=== PATIENT | female | born 1980 | race Caucasian/White ===

== ENCOUNTER 2018-02-17 01:10 | Emergency (ER) | payer OTHER, MEDICAID, SELFPAY ==
[2018-02-17 01:20] VITALS: BP 128/94; PULSE 105; RESP 20; TEMP 36.8; O2SAT 100; BMI 21.7
--- NOTE | 2018-02-17 01:33 | ED.DENTAL ---
HPI - Dental/Oral General Chief complaint: Dental/Oral Stated complaint: SWELLING, PAIN, VOMITING/TOOTH PULLED Time Seen by Provider: 02/17/18 01:13 Source: patient and family Mode of arrival: ambulatory Limitations: no limitations History of Present Illness HPI Narrative: 37-year-old, nonsmoker presents with mother and a chief complaint of multiple symptoms since having a tooth pulled few days ago. She had a tooth pulled on her right upper side after it been causing her trouble for a few days. She had been doing well until she developed increasing pain and some swelling and follow up with her dentist yesterday who removed the bone graft and placed her on amoxicillin. Over the course of the day she had increasing swelling as well as multiple episodes of nausea and vomiting followed by headache. She admittedly has had very little to eat or drink for the past few days and has now taken significant amounts of antibiotics on an essentially empty stomach. She denies fever or chills. She has had no bleeding or foul tasting drainage. MD Complaint: tooth pain 1. Onset (ago): day(s) Duration: constant Severity: moderate Exacerbating factors: chewing, cold, heat and drinking fluids Context: history of dental caries Treatment prior to arrival: oral analgesic Related Data Home Medications Medication Instructions Recorded Confirmed ALBUTEROL (PROVENTIL INHALER) #0 08/04/11 nitrofurantoin monohyd/m-cryst 100 mg PO BID #0 04/09/16 [Macrobid] Previous Rx's Medication Instructions Recorded ketorolac 10 mg PO Q6HP PRN #15 tab 04/09/16 metoclopramide HCl [Reglan] 10 mg PO TID PRN #10 tab 02/17/18 Allergies Allergy/AdvReac Type Severity Reaction Status Date / Time codeine Allergy Mild HIVES AND Unverified 08/20/17 12:10 VOMITING Review of Systems Review of Systems All systems reviewed & are unremarkable except as noted in HPI and below Constitutional Denies chills, Denies fever(s), Denies lethargy and Denies weakness Eyes Denies change in vision, Denies eye discharge, Denies irritation and Denies loss of vision ENT Ears, Nose, Mouth, and Throat: Denies change in voice, Reports mouth pain, Denies neck pain and Denies sore throat Cardiovascular Denies chest pain, Denies irregular heart rhythm, Denies lightheadedness, Denies palpitations, Denies dyspnea, Denies dyspnea on exertion and Denies orthopnea Respiratory Denies cough, Denies dyspnea, Denies dyspnea on exertion and Denies wheezing Gastrointestinal Gastrointestinal: Denies abdominal pain, Denies change in bowel habits, Denies diarrhea, Denies nausea and Denies vomiting Genitourinary Denies hematuria, Denies flank pain, Denies urinary incontinence and Denies urinary urgency Musculoskeletal Denies neck pain Integumentary/Breasts Denies pruritus, Denies erythema, Denies rash and Denies wounds Neurologic Denies confusion, Denies loss of vision and Denies weakness Psychiatric Denies anxiety, Denies confusion, Denies depression, Denies homicidal ideation and Denies suicidal ideation Endocrine Denies palpitations Hematologic/Lymphatic Denies easy bruising Allergic/Immunologic Denies wheezing [facility] Social History Smoking Status: Never smoker Exam Narrative Exam Narrative: GENERAL: This is a well-nourished, well-developed patient, in mild distress. Obviously not feeling well, clutching her right face HEAD: Atraumatic. Mild R face swelling, no redness. EYES: Pupils equal round and reactive. Extraocular motions intact. No scleral icterus. No injection or drainage. ENT: Tooth #3 absent, no abscess, bleeding, or drainage. Nose without bleeding, purulent drainage or septal hematoma. Throat without erythema, tonsillar hypertrophy or exudate. Uvula midline. Airway patent. NECK: Trachea midline. No JVD or lymphadenopathy. Supple, nontender, no meningeal signs. CARDIOVASCULAR: Regular rate and rhythm without murmurs, gallops, or rubs. RESPIRATORY: Clear to auscultation. Breath sounds equal bilaterally. No wheezes, rales, or rhonchi. GASTROINTESTINAL: Abdomen soft, non-tender, nondistended. No hepato-splenomegaly, or palpable masses. No guarding. EXTREMITIES: No clubbing, cyanosis, or edema. No joint tenderness, effusion, or edema noted. BACK: Nontender without deformity or crepitance. No flank tenderness. NEURO: AOx3. SKIN: No rash or erythema. Initial Vital Signs Initial Vital Signs: Vital Signs Temperature 98.2 F 02/17/18 01:20 Pulse Rate 105 H 02/17/18 01:20 Respiratory Rate 20 02/17/18 01:20 Blood Pressure 128/94 H 02/17/18 01:20 Pulse Oximetry 100 02/17/18 01:20 Course Orders Ordered: ED Orders 02/17/18 01:35 Basic Metabolic Panel Stat Complete Blood Count AUTO DIFF Stat Discontinued Medications Sodium Chloride (Normal Saline 0.9%) 1,000 mls @ 1,000 mls/hr IV BOLUS ONE Stop: 02/17/18 02:25 Last Infusion: 02/17/18 02:35 Dose: 0 mls/hr Admin: 02/17/18 01:42 Dose: 1,000 mls/hr Sodium Chloride (Normal Saline 0.9%) 1,000 mls @ 1,000 mls/hr IV BOLUS ONE Stop: 02/17/18 03:34 Last Infusion: 02/17/18 03:37 Dose: 0 mls/hr Admin: 02/17/18 02:38 Dose: 1,000 mls/hr Ketorolac Tromethamine (Toradol) 15 mg IV NOW ONE Stop: 02/17/18 01:27 Last Admin: 02/17/18 01:41 Dose: 15 mg Metoclopramide HCl (Reglan) 10 mg IV NOW ONE Stop: 02/17/18 01:27 Last Admin: 02/17/18 01:42 Dose: 10 mg Pantoprazole Sodium (Protonix) 40 mg IV NOW ONE Stop: 02/17/18 01:27 Last Admin: 02/17/18 01:42 Dose: 40 mg Reevaluation(s) Reevaluation #1: The patient reports a near complete resolution of symptoms and is requesting discharge after 2 bags of fluid Vital Signs - 8 hr 02/17/18 01:20 02/17/18 03:42 Temperature 98.2 F 98.3 F Pulse Rate 105 H 92 H Respiratory Rate 20 14 Blood Pressure 128/94 H 107/64 Pulse Oximetry 100 98 MDM - Dental/Oral Lab Data Result diagrams: 02/17/18 01:35 02/17/18 01:35 Lab Results 02/17/18 02/17/18 Range/Units 01:35 01:35 WBC 6.3 (4.5-11.0) X10^3/uL RBC 4.57 (4.0-5.2) X10^6/uL Hgb 10.5 L (12.0-16.0) g/dL Hct 32.7 L (36-46) % MCV 71.5 L (80-100) fL MCH 23.0 L (26-34) PG MCHC 32.1 (30-36) % RDW 16.2 H (11.6-14.8) % Plt Count 208 (150-400) X10^3/uL Neut % (Auto) 76.1 H (50-75) % Lymph % (Auto) 15.5 L (25-40) % [place] % (Auto) 5.7 (3-14) % Eos % (Auto) 2.5 (2-4) % Baso % (Auto) 0.2 (0-2) % Neut # (Auto) 4800 (0877-4418) /uL Sodium 140 (137-145) mmol/L Potassium 3.9 (3.4-5.1) mmol/L Chloride 103 (98-107) mmol/L Carbon Dioxide 29 (22-32) mmol/L BUN 8 (7-17) mg/dL Creatinine 0.60 (0.52-1.04) mg/dL Estimated GFR > 60.0 (>60) mL/min BUN/Creatinine Ratio 13.3 (6-22) Glucose 94 (70-100) mg/dL Calcium 9.0 (8.4-10.2) mg/dL Discharge Plan Departure Patient Disposition: Home Clinical Impression: Pain, dental, Abscess, dental Discharge Date/Time: 02/17/18 03:43 Interventions: ED Discharge Assessment Last Done: 02/17/18 03:42 Instructions: Tooth Abscess, DI for Dental Pain Activity Restrictions/Additional Instructions: 1. Drink plenty of fluids with frequent small sips. 2. For the next 24 hours a clear liquid diet is advised. After that please employ a brat diet which would include bananas, rice, apples, toast. 3. Please take medications as directed. 4. Please follow-up with your doctor in the next 1-2 days. Call the office for an appointment. 5. Please return to the emergency Department for any worsening or persistent symptoms, such as increasing pain or fever. Prescriptions: New metoclopramide HCl [Reglan] 10 mg tablet 10 mg PO TID PRN (Reason: nausea and vomiting) Qty: 10 RF: 0 No Action ALBUTEROL (PROVENTIL INHALER) Qty: 0 RF: 0 nitrofurantoin monohyd/m-cryst [Macrobid] 100 MG capsule 100 mg PO BID Qty: 0 RF: 0 ketorolac 10 MG tablet 10 mg PO Q6HP PRNQty: 15 RF: 0
[2018-02-17] MEDS: KETOROLAC 60 MG/2 ML VIAL 15 MG IV (01:41)
[2018-02-17] MEDS: METOCLOPRAMIDE 10 MG/2 ML INJ IV (01:42)
[2018-02-17] MEDS: SODIUM CHLORIDE 0.9% 1,000 ML 1000 ML IV ×2 (01:42→02:38)
[2018-02-17] MEDS: PANTOPRAZOLE 40 MG VIAL IV (01:42)
[2018-02-17 01:52] LABS: Add Manual Diff / Slide Review NO; Basophils Percent Auto 0.2 % (0-2); Eosinophils Percent Auto 2.5 % (2-4); Hematocrit 32.7 % (36-46); Hemoglobin 10.5 g/dL (12.0-16.0); Lymphocytes Percent Auto 15.5 % (25-40); Mean Corpuscular HGB Conc 32.1 % (30-36); Mean Corpuscular Volume 71.5 fL (80-100); Monocytes Percent Auto 5.7 % (3-14); Neutrophils Absolute Auto 4800 /uL (3000-5900); Neutrophils Percent Auto 76.1 % (50-75); Platelet Count 208 X10^3/uL (150-400); Red Blood Cell Count 4.57 X10^6/uL (4.0-5.2); Red Cell Distribution Width 16.2 % (11.6-14.8); White Blood Cell Count 6.3 X10^3/uL (4.5-11.0)
[2018-02-17 02:41] LABS: BUN Creatinine Ratio 13.3 (6-22); Blood Urea Nitrogen 8 mg/dL (7-17); Carbon Dioxide 29 mmol/L (22-32); Chloride 103 mmol/L (98-107); Estimated Glomerular Filt Rate > 60.0 mL/min (>60); Glucose 94 mg/dL (70-100); HEMOLYSIS < 15 (0-50); Potassium 3.9 mmol/L (3.4-5.1); Sodium 140 mmol/L (137-145)
[2018-02-17 03:42] VITALS: BP 107/64; PULSE 92; RESP 14; TEMP 36.8; O2SAT 98
--- NOTE | 2018-02-19 16:03 | PC.NURSE ---
Attempted follow up Phone call. No one answered at this time.
== END 2018-02-17 03:43 | disposition home or self-care (01) ==
PROVIDERS: Emergency Provider Emergency Medicine; Family Provider Nurse Practitioner Gerontology
DX: K08.89 Other specified disorders of teeth and supporting structures (principal); K04.7 Periapical abscess without sinus
CPT/HCPCS: 36591; 80048; 85025; 96361; 96374; 96375; 99283; 99284; C9113; J1885; J2765

== ENCOUNTER 2018-05-28 14:53 | Emergency (ER) | payer OTHER, MEDICAID, SELFPAY ==
[2018-05-28 15:12] VITALS: BP 137/93; PULSE 103; RESP 20; TEMP 36.8; O2SAT 96; BMI 23.3
--- NOTE | 2018-05-28 15:56 | ED.BACK ---
HPI - Back Pain/Injury <Claudia Hernandez PA-C - Last Filed: 05/28/18 21:42> General Chief Complaint: Back Pain/Injury Stated Complaint: back pain Time Seen by Provider: 05/28/18 15:33 Source: patient Limitations: no limitations History of Present Illness HPI Narrative: This 37-year-old female comes in due to worsening right-sided sciatica. She states that pain started without trauma about 3 weeks ago. 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 She was treated with pain medication and has been referred to a local spine/pain specialist. 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 She does not take medication during the day but takes pain medication she was prescribed from the ED at night, sometimes Percocet and tizanidine or Dilaudid. She states that today, she was leaning over a desk and felt a pop in her right low back, and after that pain was so severe that she could not straighten up or walk. She states all along, pain has been radiating down the right posterior thigh area, and she has numbness and tingling all the way down the leg into the foot and all of the toes. That is not acutely changed. She states that pain eases up a little bit when she is still, worse when she tries to change positions or sits. She denies any difficulty with urination, change in bowel movements, or groin numbness. She called the local orthopedics office where she is being seen next week and was directed here and advised she may need MRI. She states that at times her leg has felt weak all along and her foot will flop out to 1 side or the other. This is inconsistent, not acutely worse now. She has been walking with a cane part of the time due to this. She denies any history of falls or trauma. She has not been ill recently with any febrile illness. Related Data Home Medications Medication Instructions Recorded Confirmed diazepam 5 - 10 mg PO TID PRN 05/28/18 05/28/18 lisdexamfetamine [Vyvanse] 70 mg PO DAILY 05/28/18 05/28/18 meloxicam 7.5 mg PO DAILY 05/28/18 05/28/18 oxycodone-acetaminophen 1 - 2 tab PO Q4H PRN 05/28/18 05/28/18 tizanidine 2 mg PO 1-2XD PRN 05/28/18 05/28/18 zolpidem 12.5 mg PO BEDTIME 05/28/18 05/28/18 Previous Rx's Medication Instructions Recorded dexamethasone 4 mg PO .q4WA #14 tab 05/28/18 oxycodone-acetaminophen [Endocet] 1 tab PO Q4-6H PRN #10 tab 05/28/18 Allergies Allergy/AdvReac Type Severity Reaction Status Date / Time codeine Allergy Mild HIVES AND Verified 05/28/18 15:12 VOMITING Review of Systems <Claudia Hernandez PA-C - Last Filed: 05/28/18 21:42> Review of Systems ROS Unobtainable: All systems reviewed & are unremarkable except as noted in HPI and below Exam <Claudia Hernandez PA-C - Last Filed: 05/28/18 21:42> Narrative Exam Narrative: GENERAL APPEARANCE: Tearful patient sitting stiffly keeping pressure off of her right side PULMONARY: Lungs clear to auscultation bilaterally CV: Regular rhythm regular without murmur, normal S1 and S2, no S3 or S4 MUSCULOSKELETAL: Tender over the L4-S2 levels. Limited trunk range of motion secondary to tenderness. She is able to move from sit to stand on her own but difficulty maintaining position secondary to tenderness. Lower extremity strength 5/5 bilateral hip flexors, knee extensors, foot plantar flexion. Positive right straight leg raise NEUROLOGIC: Bilateral patellar and Achilles DTRs 0/0 bilaterally. LE sensation is grossly intact throughout the groin and extremities Initial Vital Signs Initial Vital Signs: Vital Signs Temperature 98.2 F 05/28/18 15:12 Pulse Rate 103 H 05/28/18 15:12 Respiratory Rate 05/28/18 15:12 Blood Pressure 137/93 H 05/28/18 15:12 Pulse Oximetry 96 05/28/18 15:12 <Al Wooten DO - Last Filed: 05/29/18 08:26> Initial Vital Signs Initial Vital Signs: Vital Signs Temperature 98.2 F 05/28/18 15:12 Pulse Rate 103 H 05/28/18 15:12 Respiratory Rate 20 05/28/18 15:12 Blood Pressure 137/93 H 05/28/18 15:12 Pulse Oximetry 96 05/28/18 15:12 Course <Claudia Hernandez PA-C - Last Filed: 05/28/18 21:42> Additional Information: Patient was feeling somewhat improved in terms of pain after medications, still severe pain and great difficulty walking even with her cane. Unable to obtain reflexes but symmetric bilaterally, and difficult to tell whether still secondary to tenderness with sitting. She does not appear to have acute neurologic compromise today. I reviewed MRI findings with Dr. Canchola, on-call for Orthopedics, who advised Decadron here and 4 mg q.4 hours at home along with pain management. Patient already has a referral to her office and she will try to get this moved up so she can be seen tomorrow now that she has had her MRI. Patient is agreeable with this plan. Also discussed need to return if any acutely worsening or new symptoms such as acute weakness in the extremity, inability to urinate, groin numbness. Orders Ordered: Discontinued Medications Diazepam (Valium) 5 mg PO NOW ONE Stop: 05/28/18 16:17 Last Admin: 05/28/18 16:40 Dose: 5 mg Hydromorphone HCl (Dilaudid) 1 mg IV NOW ONE Stop: 05/28/18 16:17 Last Admin: 05/28/18 16:40 Dose: 1 mg Hydromorphone HCl (Dilaudid) 1 mg IV NOW ONE Stop: 05/28/18 17:27 Last Admin: 05/28/18 17:47 Dose: 1 mg Hydromorphone HCl (Dilaudid) 0.5 mg IV NOW ONE Stop: 05/28/18 19:33 Last Admin: 05/28/18 20:17 Dose: 0.5 mg Dexamethasone 20 mg/ Sodium (Chloride) 52 mls @ 208 mls/hr IV NOW ONE Stop: 05/28/18 19:27 Last Infusion: 05/28/18 20:01 Dose: 0 mls/hr Admin: 05/28/18 19:41 Dose: 208 mls/hr Vital Signs - 8 hr 05/28/18 15:12 Temperature 98.2 F Pulse Rate 103 H Respiratory Rate 20 Blood Pressure 137/93 H Pulse Oximetry 96 <Al Wooten DO - Last Filed: 05/29/18 08:26> Orders Ordered: Discontinued Medications Diazepam (Valium) 5 mg PO NOW ONE Stop: 05/28/18 16:17 Last Admin: 05/28/18 16:40 Dose: 5 mg Hydromorphone HCl (Dilaudid) 1 mg IV NOW ONE Stop: 05/28/18 16:17 Last Admin: 05/28/18 16:40 Dose: 1 mg Hydromorphone HCl (Dilaudid) 1 mg IV NOW ONE Stop: 05/28/18 17:27 Last Admin: 05/28/18 17:47 Dose: 1 mg Hydromorphone HCl (Dilaudid) 0.5 mg IV NOW ONE Stop: 05/28/18 19:33 Last Admin: 05/28/18 20:17 Dose: 0.5 mg Dexamethasone 20 mg/ Sodium (Chloride) 52 mls @ 208 mls/hr IV NOW ONE Stop: 05/28/18 19:27 Last Infusion: 05/28/18 20:01 Dose: 0 mls/hr Admin: 05/28/18 19:41 Dose: 208 mls/hr Vital Signs - 8 hr 05/28/18 15:12 Temperature 98.2 F Pulse Rate 103 H Respiratory Rate 20 Blood Pressure 137/93 H Pulse Oximetry 96 MDM - Back Pain/Injury <Claudia Hernandez PA-C - Last Filed: 05/28/18 21:42> Lab Data Result diagrams: 05/28/18 16:35 05/28/18 16:35 Lab Results 05/28/18 05/28/18 Range/Units 16:35 16:35 WBC 7.1 (4.5-11.0) X10^3/uL RBC 4.79 (4.0-5.2) X10^6/uL Hgb 10.8 L (12.0-16.0) g/dL Hct 34.0 L (36-46) % MCV 71.0 L (80-100) fL MCH 22.6 L (26-34) PG MCHC 31.7 (30-36) % RDW 17.4 H (11.6-14.8) % Plt Count 207 (150-400) X10^3/uL Neut % (Auto) 57.1 (50-75) % Lymph % (Auto) 32.3 (25-40) % [place] % (Auto) 6.8 (3-14) % Eos % (Auto) 3.3 (2-4) % Baso % (Auto) 0.5 (0-2) % Neut # (Auto) 4000 (0186-1786) /uL Lymph # (Auto) 2300 (1030-9321) /uL [place] # (Auto) 500 (0-900) /uL Eos # (Auto) 200 (0-450) /uL Baso # (Auto) 0 (0-100) /uL ESR 17 (0-20) MM/HR Sodium 138 (137-145) mmol/L Potassium 3.8 (3.4-5.1) mmol/L Chloride 106 (98-107) mmol/L Carbon Dioxide 21 L (22-32) mmol/L BUN 10 (7-17) mg/dL Creatinine 0.50 L (0.52-1.04) mg/dL Estimated GFR > 60.0 (>60) mL/min BUN/Creatinine Ratio 20.0 (6-22) Glucose 80 (70-100) mg/dL Calcium 9.5 (8.4-10.2) mg/dL Total Bilirubin 0.4 (0.2-1.3) mg/dL AST 60 H (14-36) IU/L ALT 71 H (9-52) IU/L Alkaline Phosphatase 48 (38-126) U/L C-Reactive Protein < 0.5 (<1.0) mg/dL Total Protein 7.9 (6.3-8.2) g/dL Albumin 4.6 (3.5-5.0) g/dL Globulin 3.3 (1.7-4.1) g/dL Albumin/Globulin Ratio 1.4 (1.0-2.8) Imaging Data MRI - lumbar: Radiologist's impression: View Report History [address] [address] Magnetic Resonance Report Signed Patient: Luciana Corral MR#: [id number] : 1980 Acct:[id number] Age/Sex: 37 / F Date of Service: 05/28/18 Loc: ED Accession Number: [id number] Procedure: MR lumbar spine wo con Ordering Provider: Claudia Hernandez P.A-C PROCEDURE: MR LUMBAR SPINE WO CON INDICATIONS: worsening sciatica, R. LE paresthesia/weakness, intermittent. Low back pain TECHNIQUE: Noncontrast sagittal T1 spin echo and T2 fast echo, sagittal STIR, axial T1 and T2 fast spin echo through the lumbar spine. In cases with scoliosis, additional coronal T2 fast spin echo may be performed. COMPARISON: [facility], CT, ABDOMEN/PELVIS WITH CONTRAST, 12/19/2014, 22:35. FINDINGS: Image quality: Excellent. Alignment and Curvature: There is normal bony alignment. Hypoplastic S1-S2 disc space. Please see the montage image for clarification of the spinal segmental level numbering scheme used in this report Bone Marrow: Marrow is of normal overall signal. No acute vertebral body compression fractures. Spinal Cord: Conus medullaris terminates at the L2 level. Visualized cord demonstrates normal signal and size. Paraspinous Soft Tissues: No paravertebral masses. L1-L2: Normal appearance. L2-L3: Mild disc height loss and broad-based posterior disc bulge. Minimal canal narrowing. Mild bilateral facet disease. Lateral recess appear patent. No foraminal stenosis. L3-L4: Normal appearance. L4-L5: Broad-based posterior disc bulge and posterior annular fissure. Bilateral facet arthropathy. No definite central canal stenosis. Symmetric partial effacement of both lateral recesses. No foraminal stenosis. L5-S1: Posterior annular fissure. Broad-based posterior disc bulge and superimposed central disc protrusion. There is also probably right-sided disc extrusion versus sequestration seen on image 8 series 2, image 29 series 4 and measures 1.1 x 0.9 cm on axial image 29. This completely effaces the right lateral recess raising possibility of impingement on the descending right S1 nerve root. Recommend further evaluation with contrast-enhanced examination to exclude neoplasm. Bilateral facet arthropathy. Mild central canal narrowing. Mild bilateral foraminal narrowing IMPRESSION: Prominent mass within the L5-S1 right lateral recess presumably disc extrusion/sequestration although recommend further evaluation with contrast-enhanced MRI (in the nonemergent setting) to exclude neoplastic etiologies. Findings are suspicious for impingement on the descending right S1 nerve root. Please correlate clinically. Elsewhere, mild multilevel lumbar degeneration. Mild bilateral L5-S1 foraminal stenoses. Dictated by: Ashish Talbot M.D. on 05/28/2018 at 17:21 Approved by: Ashish Talbot M.D. on 05/28/2018 at 17:31 <Al Wooten, DO - Last Filed: 05/29/18 08:26> Lab Data Lab Results 05/28/18 05/28/18 Range/Units 16:35 16:35 WBC 7.1 (4.5-11.0) X10^3/uL RBC 4.79 (4.0-5.2) X10^6/uL Hgb 10.8 L (12.0-16.0) g/dL Hct 34.0 L (36-46) % MCV 71.0 L (80-100) fL MCH 22.6 L (26-34) PG MCHC 31.7 (30-36) % RDW 17.4 H (11.6-14.8) % Plt Count 207 (150-400) X10^3/uL Neut % (Auto) 57.1 (50-75) % Lymph % (Auto) 32.3 (25-40) % [place] % (Auto) 6.8 (3-14) % Eos % (Auto) 3.3 (2-4) % Baso % (Auto) 0.5 (0-2) % Neut # (Auto) 4000 (8137-8636) /uL Lymph # (Auto) 2300 (0012-7060) /uL [place] # (Auto) 500 (0-900) /uL Eos # (Auto) 200 (0-450) /uL Baso # (Auto) 0 (0-100) /uL ESR 17 (0-20) MM/HR Sodium 138 (137-145) mmol/L Potassium 3.8 (3.4-5.1) mmol/L Chloride 106 (98-107) mmol/L Carbon Dioxide 21 L (22-32) mmol/L BUN 10 (7-17) mg/dL Creatinine 0.50 L (0.52-1.04) mg/dL Estimated GFR > 60.0 (>60) mL/min BUN/Creatinine Ratio 20.0 (6-22) Glucose 80 (70-100) mg/dL Calcium 9.5 (8.4-10.2) mg/dL Total Bilirubin 0.4 (0.2-1.3) mg/dL AST 60 H (14-36) IU/L ALT 71 H (9-52) IU/L Alkaline Phosphatase 48 (38-126) U/L C-Reactive Protein < 0.5 (<1.0) mg/dL Total Protein 7.9 (6.3-8.2) g/dL Albumin 4.6 (3.5-5.0) g/dL Globulin 3.3 (1.7-4.1) g/dL Albumin/Globulin Ratio 1.4 (1.0-2.8) Discharge Plan Departure Patient Disposition: Home Clinical Impression: Herniated intervertebral disc of lumbar spine Discharge Date/Time: 05/28/18 20:36 Interventions: ED Discharge Assessment Last Done: 05/28/18 20:35 Instructions: DI for Herniated Disc Activity Restrictions/Additional Instructions: Your MRI shows that you likely have a herniated disc in your low back which is pushing on the right side nerve that goes into your leg. This is likely the source of your severe pain. Dr. Canchola from orthopedics who was building construction estimator [facility] has reviewed your MRI with me. She is going to talk with her office and try to arrange for you to be seen tomorrow if possible. She said to call their if you do not hear from them in the morning. In the interim, we have given you a shot of steroids at her suggestion. I have also sent the same medication in oral form to the pharmacy for you. You should continue taking that starting in the morning, every 4 hr while you are awake. You can use the oxycodone/acetaminophen I prescribed (remember this is double dose from what you had before, so if your pain is better, you can take 1/2 tab). You should return to the closest ED as we talked about if you have acutely worsening symptoms, such as new weakness in the leg, numbness in your groin, or you are unable to urinate. Prescriptions: New oxycodone-acetaminophen [Endocet] 10-325 mg tablet 1 tab PO Q4-6H PRN (Reason: acute radicular/back pain) Qty: 10 RF: 0 dexamethasone 4 mg tablet 4 mg PO .q4WA Qty: 14 RF: 0 No Action tizanidine 2 mg tablet 2 mg PO 1-2XD PRN (Reason: spasticity) RF: 0 meloxicam 7.5 mg tablet 7.5 mg PO DAILY RF: 0 zolpidem 12.5 mg tablet,ext release multiphase 12.5 mg PO BEDTIME RF: 0 lisdexamfetamine [Vyvanse] 70 mg capsule 70 mg PO DAILY RF: 0 oxycodone-acetaminophen 10-325 mg tablet 1 - 2 tab PO Q4H PRN (Reason: pain) RF: 0 diazepam 5 mg tablet 5 - 10 mg PO TID PRN (Reason: Muscle Spasm) RF: 0 Referrals: Elsa Canchola MD [Physician] - <Al Wooten DO - Last Filed: 05/29/18 08:26> [facility] Attestation: I was immediately available in the department for consultation. Documentation has been reviewed. I agree with assessment and plan.
--- NOTE | 2018-05-28 16:21 | DI.MRI.S_ITS ---
PROCEDURE: MR LUMBAR SPINE WO CON INDICATIONS: worsening sciatica, R. LE paresthesia/weakness, intermittent. Low back pain TECHNIQUE: Noncontrast sagittal T1 spin echo and T2 fast echo, sagittal STIR, axial T1 and T2 fast spin echo through the lumbar spine. In cases with scoliosis, additional coronal T2 fast spin echo may be performed. COMPARISON: [facility], CT, ABDOMEN/PELVIS WITH CONTRAST, 12/19/2014, 22:35. FINDINGS: Image quality: Excellent. Alignment and Curvature: There is normal bony alignment. Hypoplastic S1-S2 disc space. Please see the montage image for clarification of the spinal segmental level numbering scheme used in this report Bone Marrow: Marrow is of normal overall signal. No acute vertebral body compression fractures. Spinal Cord: Conus medullaris terminates at the L2 level. Visualized cord demonstrates normal signal and size. Paraspinous Soft Tissues: No paravertebral masses. L1-L2: Normal appearance. L2-L3: Mild disc height loss and broad-based posterior disc bulge. Minimal canal narrowing. Mild bilateral facet disease. Lateral recess appear patent. No foraminal stenosis. L3-L4: Normal appearance. L4-L5: Broad-based posterior disc bulge and posterior annular fissure. Bilateral facet arthropathy. No definite central canal stenosis. Symmetric partial effacement of both lateral recesses. No foraminal stenosis. L5-S1: Posterior annular fissure. Broad-based posterior disc bulge and superimposed central disc protrusion. There is also probably right-sided disc extrusion versus sequestration seen on image 8 series 2, image 29 series 4 and measures 1.1 x 0.9 cm on axial image 29. This completely effaces the right lateral recess raising possibility of impingement on the descending right S1 nerve root. Recommend further evaluation with contrast-enhanced examination to exclude neoplasm. Bilateral facet arthropathy. Mild central canal narrowing. Mild bilateral foraminal narrowing IMPRESSION: Prominent mass within the L5-S1 right lateral recess presumably disc extrusion/sequestration although recommend further evaluation with contrast-enhanced MRI (in the nonemergent setting) to exclude neoplastic etiologies. Findings are suspicious for impingement on the descending right S1 nerve root. Please correlate clinically. Elsewhere, mild multilevel lumbar degeneration. Mild bilateral L5-S1 foraminal stenoses. Dictated by: Ashish Talbot M.D. on 05/28/2018 at 17:21 Approved by: Ashish Talbot M.D. on 05/28/2018 at 17:31
--- NOTE | 2018-05-28 16:31 | ED_ITS ---
HPI - Back Pain/Injury <Claudia Hernandez PA-C - Last Filed: 05/28/18 21:42> General Chief Complaint: Back Pain/Injury Stated Complaint: back pain Time Seen by Provider: 05/28/18 15:33 Source: patient Limitations: no limitations History of Present Illness HPI Narrative: This 37-year-old female comes in due to worsening right-sided sciatica. She states that pain started without trauma about 3 weeks ago. 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 She was treated with pain medication and has been referred to a local spine/pain specialist. 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 She does not take medication during the day but takes pain medication she was prescribed from the ED at night, sometimes Percocet and tizanidine or Dilaudid. She states that today, she was leaning over a desk and felt a pop in her right low back, and after that pain was so severe that she could not straighten up or walk. She states all along, pain has been radiating down the right posterior thigh area, and she has numbness and tingling all the way down the leg into the foot and all of the toes. That is not acutely changed. She states that pain eases up a little bit when she is still, worse when she tries to change positions or sits. She denies any difficulty with urination, change in bowel movements, or groin numbness. She called the local orthopedics office where she is being seen next week and was directed here and advised she may need MRI. She states that at times her leg has felt weak all along and her foot will flop out to 1 side or the other. This is inconsistent, not acutely worse now. She has been walking with a cane part of the time due to this. She denies any history of falls or trauma. She has not been ill recently with any febrile illness. Related Data Home Medications Medication Instructions Recorded Confirmed diazepam 5 - 10 mg PO TID PRN 05/28/18 05/28/18 lisdexamfetamine [Vyvanse] 70 mg PO DAILY 05/28/18 05/28/18 meloxicam 7.5 mg PO DAILY 05/28/18 05/28/18 oxycodone-acetaminophen 1 - 2 tab PO Q4H PRN 05/28/18 05/28/18 tizanidine 2 mg PO 1-2XD PRN 05/28/18 05/28/18 zolpidem 12.5 mg PO BEDTIME 05/28/18 05/28/18 Previous Rx's Medication Instructions Recorded dexamethasone 4 mg PO .q4WA #14 tab 05/28/18 oxycodone-acetaminophen [Endocet] 1 tab PO Q4-6H PRN #10 tab 05/28/18 Allergies Allergy/AdvReac Type Severity Reaction Status Date / Time codeine Allergy Mild HIVES AND Verified 05/28/18 15:12 VOMITING Review of Systems <Claudia Hernandez PA-C - Last Filed: 05/28/18 21:42> Review of Systems ROS Unobtainable: All systems reviewed & are unremarkable except as noted in HPI and below Exam <Claudia Hernandez PA-C - Last Filed: 05/28/18 21:42> Narrative Exam Narrative: GENERAL APPEARANCE: Tearful patient sitting stiffly keeping pressure off of her right side PULMONARY: Lungs clear to auscultation bilaterally CV: Regular rhythm regular without murmur, normal S1 and S2, no S3 or S4 MUSCULOSKELETAL: Tender over the L4-S2 levels. Limited trunk range of motion secondary to tenderness. She is able to move from sit to stand on her own but difficulty maintaining position secondary to tenderness. Lower extremity strength 5/5 bilateral hip flexors, knee extensors, foot plantar flexion. Positive right straight leg raise NEUROLOGIC: Bilateral patellar and Achilles DTRs 0/0 bilaterally. LE sensation is grossly intact throughout the groin and extremities Initial Vital Signs Initial Vital Signs: Vital Signs Temperature 98.2 F 05/28/18 15:12 Pulse Rate 103 H 05/28/18 15:12 Respiratory Rate 05/28/18 15:12 Blood Pressure 137/93 H 05/28/18 15:12 Pulse Oximetry 96 05/28/18 15:12 <Al Wooten DO - Last Filed: 05/29/18 08:26> Initial Vital Signs Initial Vital Signs: Vital Signs Temperature 98.2 F 05/28/18 15:12 Pulse Rate 103 H 05/28/18 15:12 Respiratory Rate 20 05/28/18 15:12 Blood Pressure 137/93 H 05/28/18 15:12 Pulse Oximetry 96 05/28/18 15:12 Course <Claudia Hernandez PA-C - Last Filed: 05/28/18 21:42> Additional Information: Patient was feeling somewhat improved in terms of pain after medications, still severe pain and great difficulty walking even with her cane. Unable to obtain reflexes but symmetric bilaterally, and difficult to tell whether still secondary to tenderness with sitting. She does not appear to have acute neurologic compromise today. I reviewed MRI findings with Dr. Canchola, on-call for Orthopedics, who advised Decadron here and 4 mg q.4 hours at home along with pain management. Patient already has a referral to her office and she will try to get this moved up so she can be seen tomorrow now that she has had her MRI. Patient is agreeable with this plan. Also discussed need to return if any acutely worsening or new symptoms such as acute weakness in the extremity, inability to urinate, groin numbness. Orders Ordered: Discontinued Medications Diazepam (Valium) 5 mg PO NOW ONE Stop: 05/28/18 16:17 Last Admin: 05/28/18 16:40 Dose: 5 mg Hydromorphone HCl (Dilaudid) 1 mg IV NOW ONE Stop: 05/28/18 16:17 Last Admin: 05/28/18 16:40 Dose: 1 mg Hydromorphone HCl (Dilaudid) 1 mg IV NOW ONE Stop: 05/28/18 17:27 Last Admin: 05/28/18 17:47 Dose: 1 mg Hydromorphone HCl (Dilaudid) 0.5 mg IV NOW ONE Stop: 05/28/18 19:33 Last Admin: 05/28/18 20:17 Dose: 0.5 mg Dexamethasone 20 mg/ Sodium (Chloride) 52 mls @ 208 mls/hr IV NOW ONE Stop: 05/28/18 19:27 Last Infusion: 05/28/18 20:01 Dose: 0 mls/hr Admin: 05/28/18 19:41 Dose: 208 mls/hr Vital Signs - 8 hr 05/28/18 15:12 Temperature 98.2 F Pulse Rate 103 H Respiratory Rate 20 Blood Pressure 137/93 H Pulse Oximetry 96 <Al Wooten DO - Last Filed: 05/29/18 08:26> Orders Ordered: Discontinued Medications Diazepam (Valium) 5 mg PO NOW ONE Stop: 05/28/18 16:17 Last Admin: 05/28/18 16:40 Dose: 5 mg Hydromorphone HCl (Dilaudid) 1 mg IV NOW ONE Stop: 05/28/18 16:17 Last Admin: 05/28/18 16:40 Dose: 1 mg Hydromorphone HCl (Dilaudid) 1 mg IV NOW ONE Stop: 05/28/18 17:27 Last Admin: 05/28/18 17:47 Dose: 1 mg Hydromorphone HCl (Dilaudid) 0.5 mg IV NOW ONE Stop: 05/28/18 19:33 Last Admin: 05/28/18 20:17 Dose: 0.5 mg Dexamethasone 20 mg/ Sodium (Chloride) 52 mls @ 208 mls/hr IV NOW ONE Stop: 05/28/18 19:27 Last Infusion: 05/28/18 20:01 Dose: 0 mls/hr Admin: 05/28/18 19:41 Dose: 208 mls/hr Vital Signs - 8 hr 05/28/18 15:12 Temperature 98.2 F Pulse Rate 103 H Respiratory Rate 20 Blood Pressure 137/93 H Pulse Oximetry 96 MDM - Back Pain/Injury <Claudia Hernandez PA-C - Last Filed: 05/28/18 21:42> Lab Data Result diagrams: 05/28/18 16:35 05/28/18 16:35 Lab Results 05/28/18 05/28/18 Range/Units 16:35 16:35 WBC 7.1 (4.5-11.0) X10^3/uL RBC 4.79 (4.0-5.2) X10^6/uL Hgb 10.8 L (12.0-16.0) g/dL Hct 34.0 L (36-46) % MCV 71.0 L (80-100) fL MCH 22.6 L (26-34) PG MCHC 31.7 (30-36) % RDW 17.4 H (11.6-14.8) % Plt Count 207 (150-400) X10^3/uL Neut % (Auto) 57.1 (50-75) % Lymph % (Auto) 32.3 (25-40) % Carlton % (Auto) 6.8 (3-14) % Eos % (Auto) 3.3 (2-4) % Baso % (Auto) 0.5 (0-2) % Neut # (Auto) 4000 (6429-7814) /uL Lymph # (Auto) 2300 (4583-7784) /uL Carlton # (Auto) 500 (0-900) /uL Eos # (Auto) 200 (0-450) /uL Baso # (Auto) 0 (0-100) /uL ESR 17 (0-20) MM/HR Sodium 138 (137-145) mmol/L Potassium 3.8 (3.4-5.1) mmol/L Chloride 106 (98-107) mmol/L Carbon Dioxide 21 L (22-32) mmol/L BUN 10 (7-17) mg/dL Creatinine 0.50 L (0.52-1.04) mg/dL Estimated GFR > 60.0 (>60) mL/min BUN/Creatinine Ratio 20.0 (6-22) Glucose 80 (70-100) mg/dL Calcium 9.5 (8.4-10.2) mg/dL Total Bilirubin 0.4 (0.2-1.3) mg/dL AST 60 H (14-36) IU/L ALT 71 H (9-52) IU/L Alkaline Phosphatase 48 (38-126) U/L C-Reactive Protein < 0.5 (<1.0) mg/dL Total Protein 7.9 (6.3-8.2) g/dL Albumin 4.6 (3.5-5.0) g/dL Globulin 3.3 (1.7-4.1) g/dL Albumin/Globulin Ratio 1.4 (1.0-2.8) Imaging Data MRI - lumbar: Radiologist's impression: View Report History [address] [address] Magnetic Resonance Report Signed Patient: Luciana Corral MR#: [id number] : 1980 Acct:[id number] Age/Sex: 37 / F Date of Service: 05/28/18 Loc: ED Accession Number: [id number] Procedure: MR lumbar spine wo con Ordering Provider: Claudia Hernandez P.A-C PROCEDURE: MR LUMBAR SPINE WO CON INDICATIONS: worsening sciatica, R. LE paresthesia/weakness, intermittent. Low back pain TECHNIQUE: Noncontrast sagittal T1 spin echo and T2 fast echo, sagittal STIR, axial T1 and T2 fast spin echo through the lumbar spine. In cases with scoliosis, additional coronal T2 fast spin echo may be performed. COMPARISON: [facility], CT, ABDOMEN/PELVIS WITH CONTRAST, 12/19/2014, 22: 35. FINDINGS: Image quality: Excellent. Alignment and Curvature: There is normal bony alignment. Hypoplastic S1-S2 disc space. Please see the montage image for clarification of the spinal segmental level numbering scheme used in this report Bone Marrow: Marrow is of normal overall signal. No acute vertebral body compression fractures. Spinal Cord: Conus medullaris terminates at the L2 level. Visualized cord demonstrates normal signal and size. Paraspinous Soft Tissues: No paravertebral masses. L1-L2: Normal appearance. L2-L3: Mild disc height loss and broad-based posterior disc bulge. Minimal canal narrowing. Mild bilateral facet disease. Lateral recess appear patent. No foraminal stenosis. L3-L4: Normal appearance. L4-L5: Broad-based posterior disc bulge and posterior annular fissure. Bilateral facet arthropathy. No definite central canal stenosis. Symmetric partial effacement of both lateral recesses. No foraminal stenosis. L5-S1: Posterior annular fissure. Broad-based posterior disc bulge and superimposed central disc protrusion. There is also probably right-sided disc extrusion versus sequestration seen on image 8 series 2, image 29 series 4 and measures 1.1 x 0.9 cm on axial image 29. This completely effaces the right lateral recess raising possibility of impingement on the descending right S1 nerve root. Recommend further evaluation with contrast-enhanced examination to exclude neoplasm. Bilateral facet arthropathy. Mild central canal narrowing. Mild bilateral foraminal narrowing IMPRESSION: Prominent mass within the L5-S1 right lateral recess presumably disc extrusion/sequestration although recommend further evaluation with contrast- enhanced MRI (in the nonemergent setting) to exclude neoplastic etiologies. Findings are suspicious for impingement on the descending right S1 nerve root. Please correlate clinically. Elsewhere, mild multilevel lumbar degeneration. Mild bilateral L5-S1 foraminal stenoses. Dictated by: Ashish Talbot M.D. on 05/28/2018 at 17:21 Approved by: Ashish Talbot M.D. on 05/28/2018 at 17:31 <Al Wooten, DO - Last Filed: 05/29/18 08:26> Lab Data Lab Results 05/28/18 05/28/18 Range/Units 16:35 16:35 WBC 7.1 (4.5-11.0) X10^3/uL RBC 4.79 (4.0-5.2) X10^6/uL Hgb 10.8 L (12.0-16.0) g/dL Hct 34.0 L (36-46) % MCV 71.0 L (80-100) fL MCH 22.6 L (26-34) PG MCHC 31.7 (30-36) % RDW 17.4 H (11.6-14.8) % Plt Count 207 (150-400) X10^3/uL Neut % (Auto) 57.1 (50-75) % Lymph % (Auto) 32.3 (25-40) % Carlton % (Auto) 6.8 (3-14) % Eos % (Auto) 3.3 (2-4) % Baso % (Auto) 0.5 (0-2) % Neut # (Auto) 4000 (8918-1712) /uL Lymph # (Auto) 2300 (7754-2326) /uL Carlton # (Auto) 500 (0-900) /uL Eos # (Auto) 200 (0-450) /uL Baso # (Auto) 0 (0-100) /uL ESR 17 (0-20) MM/HR Sodium 138 (137-145) mmol/L Potassium 3.8 (3.4-5.1) mmol/L Chloride 106 (98-107) mmol/L Carbon Dioxide 21 L (22-32) mmol/L BUN 10 (7-17) mg/dL Creatinine 0.50 L (0.52-1.04) mg/dL Estimated GFR > 60.0 (>60) mL/min BUN/Creatinine Ratio 20.0 (6-22) Glucose 80 (70-100) mg/dL Calcium 9.5 (8.4-10.2) mg/dL Total Bilirubin 0.4 (0.2-1.3) mg/dL AST 60 H (14-36) IU/L ALT 71 H (9-52) IU/L Alkaline Phosphatase 48 (38-126) U/L C-Reactive Protein < 0.5 (<1.0) mg/dL Total Protein 7.9 (6.3-8.2) g/dL Albumin 4.6 (3.5-5.0) g/dL Globulin 3.3 (1.7-4.1) g/dL Albumin/Globulin Ratio 1.4 (1.0-2.8) Discharge Plan Departure Patient Disposition: Home Clinical Impression: Herniated intervertebral disc of lumbar spine Discharge Date/Time: 05/28/18 20:36 Interventions: ED Discharge Assessment Last Done: 05/28/18 20:35 Instructions: DI for Herniated Disc Activity Restrictions/Additional Instructions: Your MRI shows that you likely have a herniated disc in your low back which is pushing on the right side nerve that goes into your leg. This is likely the source of your severe pain. Dr. Canchola from orthopedics who was production sampler chi has reviewed your MRI with me. She is going to talk with her office and try to arrange for you to be seen tomorrow if possible. She said to call their if you do not hear from them in the morning. In the interim, we have given you a shot of steroids at her suggestion. I have also sent the same medication in oral form to the pharmacy for you. You should continue taking that starting in the morning, every 4 hr while you are awake. You can use the oxycodone/acetaminophen I prescribed (remember this is double dose from what you had before, so if your pain is better, you can take 1/2 tab) . You should return to the closest ED as we talked about if you have acutely worsening symptoms, such as new weakness in the leg, numbness in your groin, or you are unable to urinate. Prescriptions: New oxycodone-acetaminophen [Endocet] 10-325 mg tablet 1 tab PO Q4-6H PRN (Reason: acute radicular/back pain) Qty: 10 RF: 0 dexamethasone 4 mg tablet 4 mg PO .q4WA Qty: 14 RF: 0 No Action tizanidine 2 mg tablet 2 mg PO 1-2XD PRN (Reason: spasticity) RF: 0 meloxicam 7.5 mg tablet 7.5 mg PO DAILY RF: 0 zolpidem 12.5 mg tablet,ext release multiphase 12.5 mg PO BEDTIME RF: 0 lisdexamfetamine [Vyvanse] 70 mg capsule 70 mg PO DAILY RF: 0 oxycodone-acetaminophen 10-325 mg tablet 1 - 2 tab PO Q4H PRN (Reason: pain) RF: 0 diazepam 5 mg tablet 5 - 10 mg PO TID PRN (Reason: Muscle Spasm) RF: 0 Referrals: Elsa Canchola MD [Physician] - <Al Wooten DO - Last Filed: 05/29/18 08:26> [facility]: I was immediately available in the department for consultation. Documentation has been reviewed. I agree with assessment and plan.
[2018-05-28] MEDS: diazePAM 5 MG TABLET PO (16:40)
[2018-05-28] MEDS: HYDROMORPHONE 1 MG INJ IV ×2 (16:40→17:47)
[2018-05-28 16:50] LABS: Add Manual Diff / Slide Review NO; Basophils Absolute Auto 0 /uL (0-100); Basophils Percent Auto 0.5 % (0-2); Eosinophils Absolute Auto 200 /uL (0-450); Eosinophils Percent Auto 3.3 % (2-4); Hemoglobin 10.8 g/dL (12.0-16.0); Lymphocytes Absolute Auto 2300 /uL (1100-4500); Lymphocytes Percent Auto 32.3 % (25-40); Mean Corpuscular HGB Conc 31.7 % (30-36); Mean Corpuscular Hemoglobin 22.6 PG (26-34); Monocytes Absolute Auto 500 /uL (0-900); Monocytes Percent Auto 6.8 % (3-14); Neutrophils Absolute Auto 4000 /uL (1500-7000); Neutrophils Percent Auto 57.1 % (50-75); Platelet Count 207 X10^3/uL (150-400); Red Blood Cell Count 4.79 X10^6/uL (4.0-5.2); Red Cell Distribution Width 17.4 % (11.6-14.8); White Blood Cell Count 7.1 X10^3/uL (4.5-11.0)
[2018-05-28 17:03] LABS: Alanine Aminotransferase 71 IU/L (9-52); Albumin 4.6 g/dL (3.5-5.0); Albumin Globulin Ratio 1.4 (1.0-2.8); Alkaline Phosphatase 48 U/L (38-126); Aspartate Aminotransferase 60 IU/L (14-36); Bilirubin Total 0.4 mg/dL (0.2-1.3); Blood Urea Nitrogen 10 mg/dL (7-17); Calcium 9.5 mg/dL (8.4-10.2); Carbon Dioxide 21 mmol/L (22-32); Chloride 106 mmol/L (98-107); Estimated Glomerular Filt Rate > 60.0 mL/min (>60); Globulin 3.3 g/dL (1.7-4.1); Glucose 80 mg/dL (70-100); HEMOLYSIS < 15 (0-50); Potassium 3.8 mmol/L (3.4-5.1); Sodium 138 mmol/L (137-145); Total Protein 7.9 g/dL (6.3-8.2)
[2018-05-28 17:05] LABS: C-Reactive Protein Quant < 0.5 mg/dL (<1.0)
[2018-05-28 17:11] LABS: Erythrocyte Sedimentation Rate 17 MM/HR (0-20)
[2018-05-28] MEDS: DEXAMETHASONE 20 MG in SODIUM CHLORIDE 0.9% 50 ML 208 ML IV (19:41)
[2018-05-28] MEDS: HYDROMORPHONE 1 MG INJ 0.5 MG IV (20:17)
== END 2018-05-28 20:36 | disposition home or self-care (01) ==
PROVIDERS: Emergency Provider Internal Medicine; Family Provider Nurse Practitioner Gerontology
DX: M51.26 Other intervertebral disc displacement, lumbar region (principal)
CPT/HCPCS: 36591; 72148; 80053; 85025; 85651; 86140; 96365; 96375; 96376; 99283; 99284; J1100; J1170

== ENCOUNTER 2018-06-05 06:09 | Day surgery (SDC) | payer OTHER, MEDICAID, SELFPAY ==
[2018-06-04 15:12] VITALS: BMI 23.1
[2018-06-05] VITALS (14 sets, daily range): BP systolic 111–138; BP diastolic 51–93; PULSE 82–115; RESP 10–21; TEMP 36.1–37; O2SAT 95–100; BMI 23.1
--- NOTE | 2018-06-05 | DI.RAD.S_ITS ---
PROCEDURE: XR LUMBAR SPINE 2-3V INDICATIONS: MICRO DISCECTOMY L5 - S1 FINDINGS: 2 limited intraoperative fluoroscopically stored images of the lower lumbar spine were obtained for intraoperative hardware localization purposes. These images are not meant for diagnostic purposes. Intraoperative findings related to a lumbar microdiscectomy procedure are present. IMPRESSION: Intraoperative images obtained during the patient's lumbar spine surgical procedure. Dictated by: Lei Javier M.D. on 06/05/2018 at 9:54 Approved by: Lei Javier M.D. on 06/05/2018 at 9:55
[2018-06-05] MEDS: LACTATED RINGERS 1,000 ML 42 ML IV (07:25)
--- NOTE | 2018-06-05 07:49 | PM.PREOP ---
Pre-operative Note Interval Note History & Physical reviewed/Exam performed by Physician: Yes Changes to H&P: No
--- NOTE | 2018-06-05 08:23 | SUR.OPER ---
Prone on spine table, head in foam head support, padded chest and pelvic supports, gel pad at knees, lower legs supported by pillows; nipples, genitalia and toes free of pressure, arms secured on foam padded arm boards at <90 degrees abduction. Tape over blanket at thigh secured to table.
[2018-06-05] MEDS: CEFAZOLIN 1 GM VIAL IV (08:34)
[2018-06-05] MEDS: BUPIVACAINE 0.25% W/ EPI VIAL 50 ML INJ (08:35)
[2018-06-05] MEDS: methylPREDNISolone acet DEPO 40 MG/ML VIAL INJ (08:36)
--- NOTE | 2018-06-05 09:15 | P.OP_ITS ---
Operative Date/Time/Diagnoses Date of procedure: 06/05/18 Time of procedure: 08:09 Pre-op diagnosis: 1. L5-S1 disc herniation 2. Lumbar radiculopathy Post-op diagnosis: same Procedure & Clinicians Procedure: 1. L5-S1 right microdiscectomy 2. Utilization of microsurgical technique and operating microscope Same procedure as scheduled: Yes Indications: Patient has been having chronic back pain and worsening lumbar radiculopathy. Patient failed multiple conservative management with worsening pain weakness and numbness in her lower extremity. Patient has been having difficulty performing activity of daily living. After discussing risks benefits of treatment options, patient elected proceed with surgery. Surgeon: Juaquin Samuel [employer] Engine Mechanic: Blas Agudelo Click Yes if Unassisted: No Anesthesia Type: General Operative Notes Closure Type: primary Specimen(s): none sent Estimated Blood Loss (mL): 10 Blood products transfused: none Procedure in detail: Patient was seen in the preoperative area. Risks and benefits of the surgery was discussed with the patient. Informed consent was obtained from the patient and placed in the chart. Surgical site was marked. Patient was taken to the operative room. General anesthesia was administered. Prophylactic antibiotic was given to the patient less than 30 min before the incision was made. Patient was placed into a prone position on the Gurpreet table. Patient's back was then prepped and draped in the sterile fashion. Time- out was performed at this time. Using AP and lateral C-arm imaging the interval between L5-S1 was identified and marked on patient's back. A 1 inch incision 1 in from midline was made on the right side. The fascia was incised in line with skin incision. Globus MARS retractors was placed inside the incision and docked onto the L5 lamina. Using microsurgical technique and operating microscope, a L5 laminotomy was performed using a Kerrison rongeur. Liagamentum flavum was resected at the site of the laminotomy. The disc space at L5-S1 was identified. Microdiscectomy was performed by incising the annulus with #11 blade. Microcurettes and pituitary was used to removed herniated disc fragments of disc from the epidural space. There were two large extruded pieces of disc material in the epidural space compressing on both the thecal sac and the right S1 nerve root. The disc fragments were all removed during the process of microdiskectomy. After the microdiskectomy was completed, the area medial lateral superior and inferior to the area of the microdiskectomy was inspected and explored using a micro curette. No other impinging structure was identified. The neurologic structures were fully decompressed. The wound was then irrigated with sterile normal saline. 40 mg Depo-Medrol was placed into the epidural space. The deep fascia was closed with 1-0 Vicryl. The subcutaneous tissue was closed with 2-0 Vicryl. The skin was closed with 4- 0 Monocryl. Patient tolerated the procedure well. There were no complications. Patient was transferred recovery room in stable condition. Complications: none Condition: stable Disposition: same day surgery Plan for aftercare: Discharge home
[2018-06-05] MEDS: ONDANSETRON 4 MG/2 ML INJ IV (09:19)
[2018-06-05] MEDS: fentaNYL 100 MCG/2 ML INJ 50 MCG IV ×4 (09:22→09:46)
[2018-06-05] MEDS: OXYCODONE/ACETAMINOPHEN 5/325 TABLET 1 TAB PO ×2 (09:38→10:09)
[2018-06-05] MEDS: LORazepam 2 MG/ML SYRINGE 0.25 MG IV (09:56)
== END 2018-06-05 11:16 | disposition home or self-care (01) ==
LOC: OR 06:11
PROVIDERS: PCP Physician Assistant Medical; Referring Provider Physician Assistant Medical; Visit Provider Orthopaedic Surgery Orthopaedic Surgery of the Spine
PROC: (CPT 63030; principal; 2018-06-05 07:45)
DX: M51.16 Intervertebral disc disorders with radiculopathy, lumbar region (principal)
CPT/HCPCS: 63030; 72100; 76000; J0690; J1030; J1100; J2060; J2250; J2405; J2704; J3010

== ENCOUNTER 2018-07-18 01:40 | Emergency (ER) | payer OTHER, MEDICAID, SELFPAY ==
[2018-07-18 02:04] VITALS: BP 121/59; PULSE 113; RESP 16; TEMP 37.2; O2SAT 98; BMI 22.6
--- NOTE | 2018-07-18 02:06 | ED_ITS ---
HPI - General Adult General Chief complaint: Back Pain/Injury Stated complaint: BACK AND LEG PAIN Time Seen by Provider: 07/18/18 01:49 Source: patient Mode of arrival: ambulatory Limitations: no limitations History of Present Illness HPI narrative: 37-year-old female here for evaluation of lower back pain, upper respiratory infection, body aches, fevers and pain radiating down her left leg. She states the symptoms started today. On June 05 she underwent a surgery for herniated disc disease. She states that the symptoms she is having today are different from that. She did take some oxycodone prior to arrival. Related Data Home Medications Medication Instructions Recorded Confirmed lisdexamfetamine 70 mg PO DAILY 05/28/18 06/05/18 meloxicam 7.5 mg PO DAILY 05/28/18 06/05/18 oxycodone-acetaminophen 1 - 2 tab PO Q4H PRN 05/28/18 06/04/18 tizanidine 2 mg PO 1-2XD PRN 05/28/18 06/05/18 zolpidem 12.5 mg PO BEDTIME 05/28/18 06/04/18 Previous Rx's Medication Instructions Recorded oxycodone-acetaminophen [Endocet] 1 tab PO Q4-6H PRN #10 tab 05/28/18 oxycodone-acetaminophen 1 tab PO Q4-6H PRN #40 tab 06/05/18 Allergies Allergy/AdvReac Type Severity Reaction Status Date / Time codeine Allergy Mild HIVES AND Verified 05/28/18 15:12 VOMITING Review of Systems Constitutional Reports body ache(s), Reports chills, Reports fatigue and Reports fever(s) Cardiovascular Denies chest pain and Denies dyspnea Respiratory Denies dyspnea Musculoskeletal Reports back pain and Reports radiating pain into limb Integumentary/Breasts Denies rash Neurologic Denies behavioral changes Psychiatric Denies behavioral changes Endocrine Reports fatigue PFSH Medical History Attention deficit disorder (Chronic) History of migraine (Chronic) Surgical History Status post (Resolved) Status post appendectomy (Resolved) Status post cholecystectomy (Resolved) Family History Other Family history non-contributory Social History household members: children Smoking Status: Never smoker alcohol intake: current Social History household members: children Smoking Status: Never smoker alcohol intake: current Exam Initial Vital Signs Initial Vital Signs: Vital Signs Temperature 99.0 F 07/18/18 02:04 Pulse Rate 113 H 07/18/18 02:04 Respiratory Rate 16 07/18/18 02:04 Blood Pressure 121/59 L 07/18/18 02:04 Pulse Oximetry 98 07/18/18 02:04 Const General: cooperative, well developed, well groomed and No acute distress Orientation: alert and awake HENMT Head: normal to inspection and normocephalic Resp Effort & Inspection: normal respiratory effort Cardio Rate: tachycardic Skin Rashes: no rashes Neuro General: alert and awake Cognition: normal cognition Speech: speech normal Extrem General: normal to inspection Psych Appearance: grossly normal and well kempt Course Orders Ordered: ED Orders 07/18/18 02:14 Influenza A and B by PCR Rapid Stat Discontinued Medications Ketorolac Tromethamine (Toradol) 30 mg IM NOW ONE Stop: 07/18/18 02:06 Last Admin: 07/18/18 02:14 Dose: 30 mg Vital Signs - 8 hr 07/18/18 02:04 Temperature 99.0 F Pulse Rate 113 H Respiratory Rate 16 Blood Pressure 121/59 L Pulse Oximetry 98 Medical Decision Making Lab Data Lab results reviewed: Yes I reviewed the patient's lab results. Lab Results 07/18/18 Range/Units 02:14 Influenza A & B (PCR) Positive, type a A (Negative) MDM Narrative Medical decision making narrative: Patient was given Toradol here in the emergency department. She is flu positive. She has no urinary symptoms. She could not provide us a urine here in the ER. The flu does explain her fevers and upper respiratory symptoms and also the body aches. I do not feel that her symptoms are consistent with a hematoma/abscess given that she has no neurologic symptoms in the lower extremities and also that her surgeries greater than 1 month ago. We did discuss the flu. She does not meet CDC criteria for martina atment with Tamiflu. Did discuss the use of Tylenol Motrin. She is given return precautions. Discharge Plan Departure Patient Disposition: Home Clinical Impression: Influenza Instructions: DI for Influenza -- Adult Activity Restrictions/Additional Instructions: Continued to take Tylenol/acetaminophen and/or Motrin/ibuprofen for any fevers. Be sure to increase her fluid intake. The symptoms of the flu usually last 7- 10 days. Sure to wash her hands frequently. Contact her primary care doctor for a follow-up. Prescriptions: No Action tizanidine 2 mg tablet 2 mg PO 1-2XD PRN (Reason: spasticity) RF: 0 meloxicam 7.5 mg tablet 7.5 mg PO DAILY RF: 0 zolpidem 12.5 mg tablet,ext release multiphase 12.5 mg PO BEDTIME RF: 0 lisdexamfetamine 70 mg capsule 70 mg PO DAILY RF: 0 oxycodone-acetaminophen 10-325 mg tablet 1 - 2 tab PO Q4H PRN (Reason: pain) RF: 0 oxycodone-acetaminophen [Endocet] 10-325 mg tablet 1 tab PO Q4-6H PRN (Reason: acute radicular/back pain) Qty: 10 RF: 0 oxycodone-acetaminophen 5-325 mg tablet 1 tab PO Q4-6H PRN (Reason: pain) Qty: 40 RF: 0 Referrals: Rachelle Fontenot [Primary Care Provider] - Stand Alone Forms: Work Release Note
[2018-07-18] MEDS: KETOROLAC 60 MG/2 ML VIAL 30 MG IM (02:14)
[2018-07-18 02:57] VITALS: BP 120/55; PULSE 105; RESP 16; TEMP 37.2; O2SAT 98
== END 2018-07-18 02:57 | disposition home or self-care (01) ==
PROVIDERS: Emergency Provider Emergency Medicine; PCP Physician Assistant Medical
DX: J11.1 Influenza due to unidentified influenza virus with other respiratory manifestations (principal)
CPT/HCPCS: 87400; 96374; 99282; 99283; 99284; J1885

== ENCOUNTER → 2020-01-28 17:26 | Outpatient (CLI) | payer OTHER, SELFPAY ==
--- NOTE | 2020-01-28 | DI.MRI.S_ITS ---
PROCEDURE: MR LUMBAR SPINE WO CON INDICATIONS: Intervertebral disc disorders with radiculopathy, TECHNIQUE: Noncontrast sagittal T1 spin echo and T2 fast echo, sagittal STIR, axial T1 and T2 fast spin echo through the lumbar spine. In cases with scoliosis, additional coronal T2 fast spin echo may be performed. COMPARISON: [facility], MR, MR LUMBAR SPINE WO CON, 05/28/2018, 16:53. [facility], MR, MR LUMBAR SPINE WITHOUT CONTRAST, 07/08/2018, 13:51. FINDINGS: Image quality: Excellent. Alignment and Curvature: There is appearance of transitional anatomy with what appears to be lumbarization of the 1st lumbar vertebral body with rudimentary disc. In keeping with prior numbering, vertebral bodies are labeled 1 through 5. Bone Marrow: Marrow is of normal overall signal. No acute vertebral body compression fractures. Spinal Cord: Conus medullaris terminates at the L2 level. Visualized cord demonstrates normal signal and size. Paraspinous Soft Tissues: No paravertebral masses. Discs: Moderate desiccation is present at L2-3, L4-5, L5-S1. L1-L2: No disc bulge, spinal stenosis or foraminal narrowing. No interval change. L2-L3: Mild disc bulge without spinal stenosis or foraminal narrowing. No interval change. Minimal epidural lipomatosis. L3-L4: Minimal disc bulge without spinal stenosis or foraminal narrowing. Minimal epidural lipomatosis as well as mild facet and ligamentum flavum hypertrophy. L4-L5: Mild disc bulge with minimal canal narrowing, unchanged minimal bilateral foraminal narrowing including lateral recess narrowing, relatively stable. Facet hypertrophy is present. L5-S1: Posterior right laminectomy changes are noted. No spinal stenosis. Minimal to mild bilateral foraminal narrowing, unchanged. IMPRESSION: 1. Stable interval exam demonstrating disc bulges without gross spinal stenosis. Minimal to mild foraminal narrowing is noted L4-5 and L5-S1. Dictated by: Jaclyn Bedoya M.D. on 01/31/2020 at 9:09 Approved by: Jaclyn Bedoya M.D. on 01/31/2020 at 11:23
== END ==
PROVIDERS: PCP Physician Assistant Medical; Referring Provider Orthopaedic Surgery Orthopaedic Surgery of the Spine; Visit Provider Orthopaedic Surgery Orthopaedic Surgery of the Spine
DX: M51.16 Intervertebral disc disorders with radiculopathy, lumbar region (principal)
CPT/HCPCS: 72148

== ENCOUNTER 2021-12-16 08:00 | Emergency (ER) | payer OTHER, MEDICAID, SELFPAY ==
[2021-12-16 08:00] VITALS: BP 108/62; PULSE 130; RESP 18; TEMP 37.6; O2SAT 100; BMI 22.6
--- NOTE | 2021-12-16 08:36 | ED.FEVER ---
HPI - Fever General Chief Complaint: Fever Stated Complaint: fever not going down x3 days Time Seen by Provider: 12/16/21 08:16 Source: patient Mode of arrival: Ambulatory History of Present Illness HPI Narrative: This patient is a 41-year-old woman with chronic back pain and a history of remote back surgeries. She has been in her usual state of excellent health until after retiring to bed for the evening she awoke with fever chills and sweats. She has felt vaguely nauseated but has not had any vomiting. She has not had diarrhea, skin rash, headache, URI symptoms, stiff neck, cough, shortness of breath, abdominal pain, dysuria since the onset of the symptoms but she has had persistent very high fevers since night. Most recently she had a temperature just under 104? within the past few hours which is now controlled with Tylenol. She says sometimes her heart rate gets so fast that she feels like she might fall down. She says her resting heart rate is typically around 100 beats per minute. She takes a number of medications for chronic back pain including meloxicam and gabapentin. She also takes Vyvanse but has not been taking this recently. Related Data Home Medications Medication Instructions Recorded Confirmed lisdexamfetamine 70 mg capsule 70 mg PO DAILY 05/28/18 06/05/18 meloxicam 7.5 mg tablet 7.5 mg PO DAILY 05/28/18 06/05/18 oxycodone-acetaminophen 10 mg-325 1 - 2 tab PO Q4H PRN pain 05/28/18 06/04/18 mg tablet tizanidine 2 mg tablet 2 mg PO 1-2XD PRN spasticity 05/28/18 06/05/18 zolpidem 12.5 mg tablet,extended 12.5 mg PO BEDTIME 05/28/18 06/04/18 release,multiphase Previous Rx's Medication Instructions Recorded oxycodone-acetaminophen 10 mg-325 1 tab PO Q4-6H PRN acute 05/28/18 mg tablet (Endocet) radicular/back pain #10 tabs oxycodone-acetaminophen 5 mg-325 1 tab PO Q4-6H PRN pain #40 tabs 06/05/18 mg tablet cephalexin 500 mg capsule 500 mg PO QID #40 caps 12/16/21 Allergies Allergy/AdvReac Type Severity Reaction Status Date / Time codeine Allergy Mild HIVES AND Verified 05/28/18 15:12 VOMITING Review of Systems Review of Systems Narrative: Complete review of systems is negative other than as noted in the HPI. Patient History Medical History (Updated 12/16/21 @ 12:14 by Mika French MD) Attention deficit disorder History of migraine Surgical History (Updated 05/28/18 @ 16:29 by Claudia Hernandez PA-C) Status post appendectomy Status post Status post cholecystectomy Family History Other Family history non-contributory Social History household members: children Smoking Status: Never smoker alcohol intake: current Smoking Status: Never smoker alcohol intake frequency: 0-2 drinks per day Substance Use Type: does not use Exam Narrative Exam Narrative: GENERAL: Alert, cooperative and in no distress. HEAD: Atraumatic. Normocephalic. EYES: Sclera are clear without icterus. Extraocular movements are full. NECK: Supple. Full range of motion. CARDIOVASCULAR: Normal rate and rhythm without murmur gallop or rub. RESPIRATORY: Clear to auscultation. Breath sounds equal bilaterally. No wheezes, rales, or rhonchi. GASTROINTESTINAL: Abdomen soft, non-tender, nondistended. EXTREMITIES: No edema, full range of motion. No obvious trauma. BACK: Normal inspection, no CVA tenderness. NEURO: Nonfocal examination, normal speech, normal gait. SKIN: No rash or erythema of visible areas PSYCH: Normally oriented. Normal range of affect. Appropriate behavior Initial Vital Signs Initial Vital Signs: Vital Signs Temperature 99.6 F 12/16/21 08:00 Pulse Rate 130 H 12/16/21 08:00 Respiratory Rate 18 12/16/21 08:00 Blood Pressure 108/62 12/16/21 08:00 Pulse Oximetry 100 12/16/21 08:00 Oxygen Delivery Method 12/16/21 08:00 Course Orders Ordered: ED Orders 12/16/21 08:14 Ketones (Beta-Hydroxybutyrate) Stat 12/16/21 08:27 COVID19 -Nasal RAPID/Pre-Proc Stat 12/16/21 08:29 Blood Culture Stat Complete Blood Count AUTO DIFF Stat Comprehensive Metabolic Panel Stat Lactate (Lactic Acid) Stat Procalcitonin Stat EKG-12 Lead Stat 12/16/21 08:55 XR chest 1V Stat 12/16/21 09:30 Urinalysis and Microscopic Stat Urine Culture Stat Discontinued Medications Sodium Chloride (Normal Saline 0.9%) 1,000 mls @ 1,000 mls/hr IV BOLUS ONE Stop: 12/16/21 09:23 Last Admin: 12/16/21 08:35 Dose: Not Given Documented By: MAXIMILIAN Sodium Chloride (Normal Saline 0.9%) 1,000 mls @ 1,000 mls/hr IV BOLUS ONE Stop: 12/16/21 09:30 Last Infusion: 12/16/21 11:32 Dose: 0 mls/hr Documented By: Admin: 12/16/21 08:38 Dose: 1,000 mls/hr Documented By: MAXIMILIAN Sodium Chloride (Normal Saline 0.9%) 1,000 mls @ 1,000 mls/hr IV BOLUS ONE Stop: 12/16/21 09:31 Last Infusion: 12/16/21 11:32 Dose: 0 mls/hr Documented By: Admin: 12/16/21 10:21 Dose: 1,000 mls/hr Documented By: MAXIMILIAN Ceftriaxone Sodium 2,000 mg/ (Sodium Chloride) 100 mls @ 200 mls/hr IV NOW ONE Stop: 12/16/21 10:00 Last Infusion: 12/16/21 11:33 Dose: 0 mls/hr Documented By: Admin: 12/16/21 10:20 Dose: 200 mls/hr Documented By: MAXIMILIAN Ketorolac Tromethamine (Ketorolac 30 Mg/Ml Vial) 15 mg IV NOW ONE Stop: 12/16/21 09:43 Last Admin: 12/16/21 10:20 Dose: 15 mg Documented By: MAXIMILIAN Vital Signs Vital signs: Vital Signs - 8 hr 12/16/21 08:00 12/16/21 11:10 12/16/21 11:30 Temperature 99.6 F Pulse Rate 130 H 95 H 96 H Respiratory Rate 18 Blood Pressure 108/62 Pulse Oximetry 100 98 99 Oxygen Delivery Method Room Air 12/16/21 12:00 Temperature Pulse Rate 90 Respiratory Rate Blood Pressure Pulse Oximetry 100 Oxygen Delivery Method MDM - Fever Lab Data Result diagrams: 12/16/21 08:29 12/16/21 08:29 Labs: Lab Results 12/16/21 12/16/21 12/16/21 Range/Units 08:14 08:27 08:29 WBC 15.3 H (4.5-11.0) X10^3/uL RBC 4.46 (4.0-5.2) X10^6/uL Hgb 11.8 L (12.0-16.0) g/dL Hct 36.2 (36-46) % MCV 81.2 (80-100) fL MCH 26.5 (26-34) PG MCHC 32.6 (30-36) % RDW 18.1 H (11.6-14.8) % Plt Count 217 (150-400) X10^3/uL Neut % (Auto) 83.8 H (50-75) % Lymph % (Auto) 4.9 L (25-40) % [place] % (Auto) 11.2 (3-14) % Eos % (Auto) 0.0 L (2-4) % Baso % (Auto) 0.1 (0-2) % Neut # (Auto) 36965 H (4350-2255) /uL Lymph # (Auto) 800 L (2762-0632) /uL [place] # (Auto) 1700 H (0-900) /uL Eos # (Auto) 0 (0-450) /uL Baso # (Auto) 0 (0-100) /uL Sodium (137-145) mmol/L Potassium (3.4-5.1) mmol/L Chloride (98-107) mmol/L Carbon Dioxide (22-32) mmol/L BUN (7-17) mg/dL Creatinine (0.52-1.04) mg/dL Estimated GFR (>60) mL/min BUN/Creatinine Ratio (6-22) Glucose (70-100) mg/dL Lactate (0.7-2.1) mmol/L Calcium (8.4-10.2) mg/dL Total Bilirubin (0.2-1.3) mg/dL AST (14-36) IU/L ALT (<35) IU/L Alkaline Phosphatase (38-126) U/L Total Protein (6.3-8.2) g/dL Albumin (3.5-5.0) g/dL Globulin (1.7-4.1) g/dL Albumin/Globulin Ratio (1.0-2.8) Procalcitonin (<0.5) ng/mL Urine Color Urine Appearance Urine pH (4.5-8.0) Ur Specific [place] (1.000-1.035) Urine Protein (Negative) Urine Glucose (UA) (Negative) g/dL Urine Ketones (NEGATIVE) Urine Occult Blood (Negative) Urine Nitrate (Negative) Urine Bilirubin (NEGATIVE) Urine Urobilinogen (0.2) E.U./dL Ur Leukocyte Esterase (NEGATIVE) Urine RBC (0-5/HPF) Urine WBC (0-5/HPF) Ur Squamous Epith Cells (0-5/HPF) Urine Bacteria (None) Ur Culture Indicated? Ketones 0.09 (<0.27) mmol/L SARS-CoV-2 (PCR) Negative (Negative) 12/16/21 12/16/21 12/16/21 Range/Units 08:29 08:29 09:30 WBC (4.5-11.0) X10^3/uL RBC (4.0-5.2) X10^6/uL Hgb (12.0-16.0) g/dL Hct (36-46) % MCV (80-100) fL MCH (26-34) PG MCHC (30-36) % RDW (11.6-14.8) % Plt Count (150-400) X10^3/uL Neut % (Auto) (50-75) % Lymph % (Auto) (25-40) % [place] % (Auto) (3-14) % Eos % (Auto) (2-4) % Baso % (Auto) (0-2) % Neut # (Auto) (0348-5511) /uL Lymph # (Auto) (7537-4673) /uL [place] # (Auto) (0-900) /uL Eos # (Auto) (0-450) /uL Baso # (Auto) (0-100) /uL Sodium 134 L (137-145) mmol/L Potassium 3.2 L (3.4-5.1) mmol/L Chloride 102 (98-107) mmol/L Carbon Dioxide 21 L (22-32) mmol/L BUN 7 (7-17) mg/dL Creatinine 0.68 (0.52-1.04) mg/dL Estimated GFR > 60 (>60) mL/min BUN/Creatinine Ratio 10.3 (6-22) Glucose 168 H (70-100) mg/dL Lactate 3.1 H (0.7-2.1) mmol/L Calcium 8.9 (8.4-10.2) mg/dL Total Bilirubin 0.6 (0.2-1.3) mg/dL AST 23 (14-36) IU/L ALT 26 (<35) IU/L Alkaline Phosphatase 83 (38-126) U/L Total Protein 7.7 (6.3-8.2) g/dL Albumin 4.1 (3.5-5.0) g/dL Globulin 3.6 (1.7-4.1) g/dL Albumin/Globulin Ratio 1.1 (1.0-2.8) Procalcitonin 27.8 H (<0.5) ng/mL Urine Color Yellow Urine Appearance Sl cloudy Urine pH 6.5 (4.5-8.0) Ur Specific [place] <=1.005 (1.000-1.035) Urine Protein Negative (Negative) Urine Glucose (UA) Negative (Negative) g/dL Urine Ketones Negative (NEGATIVE) Urine Occult Blood 3+ H (Negative) Urine Nitrate Positive H (Negative) Urine Bilirubin Negative (NEGATIVE) Urine Urobilinogen 0.2 (0.2) E.U./dL Ur Leukocyte Esterase 3+ H (NEGATIVE) Urine RBC 5-10/hpf H (0-5/HPF) Urine WBC 30-100/hpf H (0-5/HPF) Ur Squamous Epith Cells 10-30 /hpf H (0-5/HPF) Urine Bacteria Many (>30) H (None) Ur Culture Indicated? Specimen cultured Ketones (<0.27) mmol/L SARS-CoV-2 (PCR) (Negative) 12/16/21 Range/Units 11:30 WBC (4.5-11.0) X10^3/uL RBC (4.0-5.2) X10^6/uL Hgb (12.0-16.0) g/dL Hct (36-46) % MCV (80-100) fL MCH (26-34) PG MCHC (30-36) % RDW (11.6-14.8) % Plt Count (150-400) X10^3/uL Neut % (Auto) (50-75) % Lymph % (Auto) (25-40) % [place] % (Auto) (3-14) % Eos % (Auto) (2-4) % Baso % (Auto) (0-2) % Neut # (Auto) (2845-9434) /uL Lymph # (Auto) (7467-2486) /uL [place] # (Auto) (0-900) /uL Eos # (Auto) (0-450) /uL Baso # (Auto) (0-100) /uL Sodium (137-145) mmol/L Potassium (3.4-5.1) mmol/L Chloride (98-107) mmol/L Carbon Dioxide (22-32) mmol/L BUN (7-17) mg/dL Creatinine (0.52-1.04) mg/dL Estimated GFR (>60) mL/min BUN/Creatinine Ratio (6-22) Glucose (70-100) mg/dL Lactate 1.4 (0.7-2.1) mmol/L Calcium (8.4-10.2) mg/dL Total Bilirubin (0.2-1.3) mg/dL AST (14-36) IU/L ALT (<35) IU/L Alkaline Phosphatase (38-126) U/L Total Protein (6.3-8.2) g/dL Albumin (3.5-5.0) g/dL Globulin (1.7-4.1) g/dL Albumin/Globulin Ratio (1.0-2.8) Procalcitonin (<0.5) ng/mL Urine Color Urine Appearance Urine pH (4.5-8.0) Ur Specific [place] (1.000-1.035) Urine Protein (Negative) Urine Glucose (UA) (Negative) g/dL Urine Ketones (NEGATIVE) Urine Occult Blood (Negative) Urine Nitrate (Negative) Urine Bilirubin (NEGATIVE) Urine Urobilinogen (0.2) E.U./dL Ur Leukocyte Esterase (NEGATIVE) Urine RBC (0-5/HPF) Urine WBC (0-5/HPF) Ur Squamous Epith Cells (0-5/HPF) Urine Bacteria (None) Ur Culture Indicated? Ketones (<0.27) mmol/L SARS-CoV-2 (PCR) (Negative) Imaging Data Chest x-ray: Radiologist's Impression: IMPRESSION:? ? No evidence of an acute cardiopulmonary abnormality. ? ? Dictated by: Gerald Michael D.O. on 12/16/2021 at 8:33 ? ? Approved by: Gerald Michael D.O. on 12/16/2021 at 8:34? MDM Narrative Medical decision making narrative: Despite her lack of urinary symptoms, detailed evaluation reveals no other significant abnormality other than her sepsis and urinary tract infection. Will treat empirically for pyelo. Her lactate has normalized and she feels quite a bit better after IV hydration and antibiotics. Careful return precautions given. Discharge Plan Departure Patient Disposition: Home Clinical Impression: Pyelonephritis Activity Restrictions/Additional Instructions: You have a bladder infection that has moved into the kidney. This is the cause of the fever. He needed antibiotics for a week. Make sure that you are drinking plenty of fluids. Take ibuprofen 600 mg and Tylenol 1000 mg every 6 hours but no more than these dosages. Get plenty of rest. You should expect to feel quite a bit better by Friday. If not, he should follow up with the clinic. If feeling worse between now and then, please return to the emergency department for further evaluation. Prescriptions: New cephalexin 500 mg capsule 500 mg PO QID Qty: 40 0RF No Action tizanidine 2 mg tablet 2 mg PO 1-2XD PRN (Reason: spasticity) Label Comments: TAKE ONE TABLET BY MOUTH ONCE DAILY FOR SPASTICITY MAY INCREASE TO TWICE DAILY IF NEEDED meloxicam 7.5 mg tablet 7.5 mg PO DAILY Label Comments: take 1 tablet by mouth once daily with food or milk zolpidem 12.5 mg tablet,ext release multiphase 12.5 mg PO BEDTIME Label Comments: patient states only as needed lisdexamfetamine 70 mg capsule 70 mg PO DAILY oxycodone-acetaminophen 10-325 mg tablet 1 - 2 tab PO Q4H PRN (Reason: pain) Label Comments: take 1 to 2 tablets by mouth every 4 hours if needed for pain oxycodone-acetaminophen [Endocet] 10-325 mg tablet 1 tab PO Q4-6H PRN (Reason: acute radicular/back pain) Qty: 10 0RF Rx Instructions: 1/2-1 tab up to every 4h prn back pain. Do not drive oxycodone-acetaminophen 5-325 mg tablet 1 tab PO Q4-6H PRN (Reason: pain) Qty: 40 0RF Rx Instructions: Take 1-2 tablets every 4-6 hours as needed for pain Referrals: Anju Javier PA-C [Primary Care Provider] -
[2021-12-16] MEDS: SODIUM CHLORIDE 0.9% 1,000 ML 1000 ML IV ×2 (08:38→10:21)
[2021-12-16 08:39] LABS: Add Manual Diff / Slide Review NO; Basophils Absolute Auto 0 /uL (0-100); Basophils Percent Auto 0.1 % (0-2); Eosinophils Absolute Auto 0 /uL (0-450); Hematocrit 36.2 % (36-46); Hemoglobin 11.8 g/dL (12.0-16.0); Lymphocytes Absolute Auto 800 /uL (1100-4500); Lymphocytes Percent Auto 4.9 % (25-40); Mean Corpuscular HGB Conc 32.6 % (30-36); Mean Corpuscular Hemoglobin 26.5 PG (26-34); Mean Corpuscular Volume 81.2 fL (80-100); Monocytes Absolute Auto 1700 /uL (0-900); Monocytes Percent Auto 11.2 % (3-14); Neutrophils Absolute Auto 12900 /uL (1500-7000); Neutrophils Percent Auto 83.8 % (50-75); Platelet Count 217 X10^3/uL (150-400); Red Blood Cell Count 4.46 X10^6/uL (4.0-5.2); Red Cell Distribution Width 18.1 % (11.6-14.8); White Blood Cell Count 15.3 X10^3/uL (4.5-11.0)
[2021-12-16 08:44] LABS: Albumin 4.1 g/dL (3.5-5.0); Albumin Globulin Ratio 1.1 (1.0-2.8); Alkaline Phosphatase 83 U/L (38-126); Aspartate Aminotransferase 23 IU/L (14-36); BUN Creatinine Ratio 10.3 (6-22); Bilirubin Total 0.6 mg/dL (0.2-1.3); Blood Urea Nitrogen 7 mg/dL (7-17); Calcium 8.9 mg/dL (8.4-10.2); Carbon Dioxide 21 mmol/L (22-32); Chloride 102 mmol/L (98-107); Estimated Glomerular Filt Rate > 60 mL/min (>60); Globulin 3.6 g/dL (1.7-4.1); Glucose 168 mg/dL (70-100); HEMOLYSIS < 15 (0-50); Potassium 3.2 mmol/L (3.4-5.1); Sodium 134 mmol/L (137-145); Total Protein 7.7 g/dL (6.3-8.2)
[2021-12-16 08:45] LABS: Lactate (Lactic Acid) 3.1 mmol/L (0.7-2.1)
[2021-12-16 08:49] LABS: COVID19 -Nasal RAPID Negative (Negative)
--- NOTE | 2021-12-16 08:55 | DI.RAD.S_ITS ---
PROCEDURE: XR CHEST 1V INDICATIONS: Palpitations TECHNIQUE: One view of the chest was acquired. COMPARISON: [facility], , CHEST 1 VIEW, 04/09/2016, 19:12. FINDINGS: Surgical changes and devices: None. Lungs and pleura: Mild elevation of the left hemidiaphragm with air-filled loops of large bowel underlying. Lungs are clear. No pleural effusions or pneumothorax. Mediastinum: Mediastinal contours appear normal. Heart size is normal. Bones and chest wall: No suspicious bony lesions. Overlying soft tissues appear unremarkable. IMPRESSION: No evidence of an acute cardiopulmonary abnormality. Dictated by: Gerald Michael D.O. on 12/16/2021 at 8:33 Approved by: Gerald Michael D.O. on 12/16/2021 at 8:34
[2021-12-16 08:57] LABS: Alanine Aminotransferase 26 IU/L (<35)
[2021-12-16 09:00] LABS: Procalcitonin 27.8 ng/mL (<0.5)
[2021-12-16 09:21] LABS: Ketones (Beta-Hydroxybutyrate) 0.09 mmol/L (<0.27)
[2021-12-16 09:40] LABS: Appearance Urine UA SL CLOUDY; Bilirubin Urine UA NEGATIVE (NEGATIVE); Color Urine UA YELLOW; Glucose Urine UA NEGATIVE (Negative); Ketones Urine UA NEGATIVE (NEGATIVE); Leukocyte Esterase Urine UA 3+ (NEGATIVE); Nitrite Urine UA POSITIVE (Negative); Occult Blood Urine UA 3+ (Negative); Protein Urine UA NEGATIVE (Negative); Specific Gravity Urine UA <=1.005 (1.000-1.035); Urobilinogen Urine UA 0.2 E.U./dL (0.2)
[2021-12-16 09:41] LABS: pH Urine UA 6.5 (4.5-8.0)
[2021-12-16 09:49] LABS: RBC Urine 5-10/HPF (0-5/HPF)
[2021-12-16 09:50] LABS: Bacteria Urine Many (>30); Culture Indicated Urine Specimen Cultured; Squamous Epithelial Cell Urine 10-30 /HPF (0-5/HPF); WBC Urine 30-100/HPF (0-5/HPF)
[2021-12-16] MEDS: cefTRIAXone 2,000 MG in SODIUM CHLORIDE 0.9% 100 ML 200 MG IV (10:20)
[2021-12-16] MEDS: KETOROLAC 30 MG/ML VIAL 15 MG IV (10:20)
[2021-12-16 10:35] LABS: Reflexed Lactate in 2 Hours Y
[2021-12-16 11:10] VITALS: PULSE 95; O2SAT 98
[2021-12-16 11:30] VITALS: PULSE 96; O2SAT 99
[2021-12-16 11:47] LABS: Lactate 2HR (Lactic Acid Rflx) 1.4 mmol/L (0.7-2.1)
[2021-12-16 12:00] VITALS: PULSE 90; O2SAT 100
== END 2021-12-16 12:40 | disposition home or self-care (01) ==
PROVIDERS: Emergency Provider Family Medicine Addiction Medicine; PCP Physician Assistant
DX: N12 Tubulo-interstitial nephritis, not specified as acute or chronic (principal); R00.2 Palpitations; Z20.822 Contact with and (suspected) exposure to COVID-19
CPT/HCPCS: 36415; 71045; 80053; 81001; 82009; 83605; 84145; 85025; 87040; 87077; 87086; 87186; 87635; 96365; 96375; 99284; C9803; J0696; J1885